=== PATIENT | male | born 1975 | race American Indian/Alaskan Native ===

== ENCOUNTER 2025-03-24 09:22 | Emergency (ER) | payer MEDICAID, SELFPAY ==
[2025-03-24] VITALS (8 sets, daily range): BP systolic 155–182; BP diastolic 100–108; PULSE 61–85; RESP 12–15; TEMP 36.1–36.7; O2SAT 95–97; BMI 32.4
--- NOTE | 2025-03-24 09:25 | PC.NURSE ---
PT BROUGHT IN BY AMBULANCE FROM [facility] WITH C/O INTERMITTENT NUMBNESS TO LEFT SIDE BODY x [address] COCHRAN INFORMED ABOUT PT'S SYMPTOMS
--- NOTE | 2025-03-24 09:41 | PD.EDNEURO ---
Neuro Symptoms Deficit-RME/HPI General Chief Complaint: Neuro Symptoms/Deficit Stated Complaint: intermittent numbness left arm/face x 4 days Time Seen by Provider: 03/24/25 09:45 Arrival date/time: 03/24/25 09:22 RME / HPI RME / HPI Narrative: DR. COCHRAN MAIN ED EVALUATION: 49 year old male presents to the Emergency Department [facility] with complaints of numbness and tingling of the left side arm and face onset Sunday through Sunday. He states he also felt dizzy and little shortness of breath when he was having the numbness and tingling symptoms. Today, he feels better no symptoms. Patient was seen at the clinic and told to come in for further evaluation. His blood glucose was 285, and states in the weekend his blood sugars were also high in the 300's. No chest pain. PMHx: Diabetes, hypertension, and a minor stroke 4-5 years ago. Social Hx: Drug abuse in the past, patient reported he has been clean for 3 years. Related Data Home Medications ?Medication ?Instructions ?Recorded ?Confirmed Levothyroxine * (SYNTHROID *) 100 mcg PO QDAY #0 tabs 02/20/17 hydrochlorothiazide 25 mg tablet mg PO QAM #0 tabs 02/20/17 lisinopril 20 mg tablet 20 mg PO QDAY #0 tabs 02/20/17 metformin 1,000 mg tablet 1,000 mg PO BID #0 tabs 02/20/17 (Glucophage) pioglitazone 30 mg tablet (Actos) 30 mg PO QDAY #0 tabs 02/20/17 simvastatin 40 mg tablet (Zocor) 40 mg PO HS #0 tabs 02/20/17 Previous Rx's ?Medication ?Instructions ?Recorded acetaminophen 325 mg capsule 975 mg (3 x 325 mg) PO Q6H PRN 07/18/20 pain #30 caps Allergies Allergy/AdvReac Type Severity Reaction Status Date / Time No Known Allergies Allergy Verified 03/24/25 09:40 Review of Systems Review of Systems Systems Reviewed: All systems reviewed, normal except as documented Past Medical History Past Medical History NEUROLOGIC: Positive Neurological Disorders and Cerebrovascular Accident CARDIAC: Positive Cardiac Disorders, Congestive Heart Failure and Hypertension RESPIRATORY: Positive Chronic Obstructive Pulmonary Disease (COPD) GASTROINTESTINAL: Positive Gastrointestinal Disorders and Cirrhosis ENDOCRINE: Positive Endocrine Disorders, Diabetes Mellitus Type 2 and Hypothyroidism PSYCHO/SOCIAL: Positive Recreational Drug Use and Depression Social History SMOKING STATUS: Never smoker SUBSTANCE USE: methamphetamine ED Exam Narrative Physical exam: GENERAL APPEARANCE: alert and oriented x 4, well-developed, well-nourished, no acute distress VITALS: All vitals were reviewed and the pulse ox is 96% on room air, which is normal according to my interpretation. HEENT: Normocephalic, atraumatic; pupils equal, round, reactive to light; EOMI; mucous membranes pink, moist; oropharynx clear NECK: Supple LUNGS: CTABL; no wheezes, no rales, no rhonchi HEART: Regular rate, regular rhythm; normal S1, S2; no murmurs ABDOMEN: non distended; normal BS; soft, no tenderness, no guarding, no rebound; no masses, no organomegaly, no hernia BACK: no CVA tenderness EXTREMITIES: atraumatic; no edema NEUROLOGIC: awake; alert and oriented x4; cranial nerves II-XII grossly intact; no focal sensory or motor deficits PSYCHIATRIC: appropriate mood and affect SKIN: warm, dry, normal color; no rashes Course Quality Measures none Orders Category Date Time Status Bedside Blood Glucose NOW Care 03/24/25 09:46 Active Wastewater Analyst Lab Analyst NOW Care 03/24/25 09:46 Active Continuous Pulse Oximetry NOW Care 03/24/25 09:46 Completed EKG (ED ONLY) *Do not use* NOW Care 03/24/25 09:46 Completed In and Out Catheter NEEDED Care 03/24/25 09:46 Active Insert IV NOW Care 03/24/25 09:46 Active EKG (ED Only) Stat Exams 03/24/25 09:46 Draft B-Type Natriuretic Peptide Stat Lab 03/24/25 09:30 Completed CBC Stat Lab 03/24/25 09:30 Completed Comprehensive Metabolic Panel Stat Lab 03/24/25 09:30 Completed Drug Screen,Urine Stat Lab 03/24/25 10:30 Completed Magnesium Stat Lab 03/24/25 09:30 Completed Partial Thromboplastin Time Stat Lab 03/24/25 09:30 Ordered Prothrombin Time with INR Stat Lab 03/24/25 09:30 Ordered Troponin I Stat Lab 03/24/25 09:30 Completed Urinalysis Stat Lab 03/24/25 10:30 Completed Urine Culture Stat Lab 03/24/25 10:30 Received hydrALAZINE INJ [Apresoline Inj] Med 03/24/25 11:43 Discontinued 10 mg IV X1 ONE Vital Signs Vital signs: Vital Signs Temperature 98.1 F 03/24/25 09:25 Pulse Rate 85 03/24/25 09:25 Respiratory Rate 14 03/24/25 09:25 Blood Pressure 182/108 H 03/24/25 09:25 Pulse Oximetry (%) 97 03/24/25 09:25 Oxygen Delivery Method Room Air 03/24/25 09:25 Neuro Symptoms / Deficit MDM Narrative MDM Narrative:: Jenny Membreno am scribing for and in the presence of Dr. Cochran. Patient data External records reviewed:: EMS form Clinical information provided by:: patient and EMS Social determinants that could affect healthcare access:: substance use (Drug abuse in the past, patient reported he has been clean for 3 years.) Patient has the following chronic illnesses:: Diabetes, hypertension, and a minor stroke 4-5 years ago. How is presenting disease/condition affected by chronic disease/condition?: exacerbated by Evaluation data The following diagnostics were reviewed and interpreted by me:: lab results and EKG tracing(s) Lab and/or radiology exams considered but not ordered:: none Interpretation Summary: EKG#1: EKG at 0937 hours. Interpreted by me: sinus rhythm, rate 67, Q waves in V1, V2, leads 3 and AVF, no acute ischemic changes Medications / Prescriptions Medications or Prescriptions considered but not ordered:: none Medication administrations:: Medication Administration History Discontinued Medications Hydralazine HCl (Hydralazine Inj 20 Mg/Ml Vial) 10 mg IV X1 ONE Stop: 03/24/25 11:44 see above Consultations Consultation(s) initiated? (list below): No Diagnosis Neuro Differential Diagnosis: transient cerebral ischemia and other (Hypertension, Elevated blood pressure reading, Hyperglycemia) Most likely diagnosis given after review of the tests above:: Paresthesia Hypertension Elevated blood pressure reading Hyperglycemia Admission Indicated Admission indicated?: not indicated Admission Request Was there a request for admission?: No Disposition Plan Disposition Plan: Discharge Discharge Attestation Discharge Attestation: The patient and all family members were given an opportunity to ask questions and understood the discharge instructions. Discharge instructions specifically effects, indications for sooner follow up or return to the emergency department, and the expected course of current diagnosis. Patient condition: Stable Discharge Plan Plan Patient Disposition: HOME (Self Care) Prescriptions/Referrals Prescriptions/Med Rec: No Action lisinopril 20 MG tablet 20 mg PO QDAY Qty: 0 simvastatin [Zocor] 40 MG tablet 40 mg PO HS Qty: 0 metformin [Glucophage] 1,000 MG tablet 1,000 mg PO BID Qty: 0 hydrochlorothiazide 25 MG tablet PO QAM Qty: 0 pioglitazone [Actos] 30 MG tablet 30 mg PO QDAY Qty: 0 Patient Comments: FOR DIABETES Levothyroxine * (SYNTHROID *) 100 MCG tablet 100 mcg PO QDAY Qty: 0 acetaminophen 325 mg capsule 975 mg PO Q6H PRN (Reason: pain) Qty: 30 0RF Referrals: Bharati)Temi PA-C [Primary Care Provider] - In 1 week Problem List Clinical Impression: Paresthesia, Hypertension, Elevated blood pressure reading, Hyperglycemia Patient/Caregiver Discharge Instructions Education Materials: ED High Blood Pressure ..., ED Paraesthesias Print Language: Urdu Stand Alone Forms: Vivienne Award Info., Patient Portal Info Letter
--- NOTE | 2025-03-24 09:46 | EKG_ITS ---
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1975 Requested By: Ingrid Culver Order Number: [id number] Reading MD: Ingrid Culver Measurements Intervals [place] Rate: 67 P: 18 CO: 180 QRS: -42 QRSD: 95 T: 97 QT: 406 QTc: 432 Interpretive Statements SINUS RHYTHM LOW QRS VOLTAGE IN PRECORDIAL LEADS [QRS DEFLECTION < 1.0 mV IN CHEST LEADS] INCOMPLETE RIGHT BUNDLE BRANCH BLOCK [90+ ms QRS DURATION, TERMINAL R IN V1/V2, 40+ ms S IN I/aVL/V4/V5/V6] POSSIBLE ANTERIOR MYOCARDIAL INFARCTION , OF INDETERMINATE AGE [30 ms Q WAVE IN V3/V4, OR R < 0.2 mV IN V4] INFERIOR MYOCARDIAL INFARCTION , PROBABLY OLD [40+ ms Q WAVE AND/OR ST/T ABNORMALITY IN II/aVF] No previous ECG available for comparison /store/S0/[id number].pdf
[2025-03-24 10:11] LABS: Basophils # (Auto) 0.1 Thou/mm3 (0.0-0.2); Basophils % (Auto) 1 % (0-2.5); Eosinophils # (Auto) 0.5 Thou/mm3 (0.0-0.5); Eosinophils % (Auto) 4 % (0-10); Hematocrit 43.9 % (41.0-53.0); Hemoglobin 15.4 g/dL (13.5-16.0); Immature Granulocytes % (Auto) 1 % (0-0); Immature Granulocytes Auto 0.06 Thou/mm3 (0.00-0.00); Lymphocytes # (Auto) 2.5 Thou/mm3 (1.0-4.8); Lymphocytes % (Auto) 25 % (10-50); Mean Corpuscular HGB Conc 35.1 g/dl (31.0-37.0); Mean Corpuscular Hemoglobin 29.3 pg (25.0-35.0); Mean Corpuscular Volume 84 fL (80-100); Monocytes # (Auto) 0.5 Thou/mm3 (0.0-0.8); Monocytes % (Auto) 5 % (0-12); Neutrophils # (Auto) 6.5 Thou/mm3 (1.8-7.7); Neutrophils % (Auto) 64 % (37-80); Nucleated Red Blood Cell % 0 /100 WBC (0); Platelet Count 303 Thou/mm3 (140-440); RDW Standard Deviation 41.8 fL (35.1-43.9); Red Blood Count 5.25 Miln/mm3 (4.50-5.90); White Blood Count 10.1 Thou/mm3 (3.8-10.6)
[2025-03-24 10:35] LABS: Alanine Aminotransferase 14 U/L (10-49); Albumin, Serum 3.9 gm/dL (3.5-5.0); Albumin/Globulin Ratio 1.3 (1.2-2.2); Alkaline Phosphatase 111 U/L (46-116); Anion Gap 10 (7-16); Aspartate Amino Transferase 16 U/L (0-34); BUN/Creatinine Ratio 20 Ratio (12-20); Bilirubin,Total 0.5 mg/dL (0.3-1.2); Blood Urea Nitrogen 20 mg/dL (9-23); Calcium 8.8 mg/dL (8.3-10.6); Calcium (Corrected) 8.9 mg/dL (8.5-10.1); Chloride 104 mMol/L (98-107); Estimated Creatinine Clearance 90.4 mL/min (>60); Globulin 2.9 gm/dL (2.3-3.5); Glucose 272 mg/dL (74-106); Magnesium 1.9 mg/dL (1.6-2.6); Osmolality,Calculated 286 (275-295); Potassium 4.6 mMol/L (3.4-5.1); Sodium 137 mMol/L (136-145); Total Protein 6.8 gm/dL (5.7-8.2); eGFR > 60 See Note
[2025-03-24 10:38] LABS: B-Type Natriuretic Peptide 35 pg/mL (0-100)
[2025-03-24 10:57] LABS: Collection Type, Urine Clean Catch
[2025-03-24 11:18] LABS: Bilirubin,Urine Negative (Negative); Blood,Urine Trace (Negative); Clarity,Urine Clear (Clear/Hazy); Color,Urine Colorless (Lt Yel-Yel); Glucose, Urine 4+ (Negative); Ketones,Urine Negative (Negative); Leukocyte Esterase,Urine Negative (Negative); Nitrite,Urine Negative (Negative); PH,Urine 6.5 (5.0-7.0); Protein,Urine 2+ (Neg - Trace); RBC,Urine 1 /hpf (0-3); Specific Gravity,Urine 1.025 (1.001-1.035); Squamous Epithelial Cell,Urine < 1 /hpf (0-5); Urobilinogen,Urine Negative mg/dL (0.0-1.0); WBC,Urine 1 /hpf (0-5)
[2025-03-24 11:22] LABS: Amphetamine/Methamp Scrn,U Negative (Negative); Barbiturate Screen,Urine Negative (Negative); Benzodiazepines Screen,Urine Negative (Negative); Benzoylecgonine Screen, Ur Negative (Negative); Fentanyl Screen,Urine Negative (Negative); Opiate Screen,Urine Negative (Negative); THC Screen,Urine Negative (Negative)
[2025-03-24] MEDS: hydrALAZINE INJ 20 MG/ML VIAL 10 MG IV (12:02)
[2025-03-24 12:18] LABS: Partial Thromboplastin Time 27.8 Seconds (22.0-36.0); Prothrombin Time 10.9 Seconds (9.0-12.2)
--- NOTE | 2025-03-24 12:27 | PC.NURSE ---
Per Dr. Lucian spears to send patient home after reassessment of b/p still elevated at 169/101.
== END 2025-03-24 12:41 | disposition home or self-care (01) ==
PROVIDERS: Emergency Provider Emergency Medicine; PCP Nurse Practitioner Family
DX: R20.2 Paresthesia of skin (principal); I10 Essential (primary) hypertension; E11.65 Type 2 diabetes mellitus with hyperglycemia; Z86.73 Personal history of transient ischemic attack (TIA), and cerebral infarction without residual deficits
CPT/HCPCS: 36415; 80053; 80307; 81001; 83735; 83880; 84484; 85025; 85610; 85730; 87086; 93005; 99284; J0360